=== PATIENT | female | born 1995 | race Caucasian/White ===

== ENCOUNTER 2020-06-16 15:08 | Emergency (ER) | payer SELFPAY ==
[~2020-06-16] VITALS: Ht 160 cm; Wt 72.6 kg
[2020-06-16 15:16] VITALS: BP 126/69
--- NOTE | 2020-06-16 15:25 | NUR ---
PT AMBULATED TO ER BED 12
--- NOTE | 2020-06-16 15:30 | NUR ---
Note undone in EDM - 06/16/20 at 1548 by MEDLORA / APPRO 9 WEEKS C/O N/V X 3 DAYS, INTERMITTENT EPIGASTRIC PAIN X 1 DAY, NONBLOODY DIARRHEA WITH LOOSE STOOL. DENIES COUGH, FEVER, SOB, VAG BLEEDING, SICK CONTACTS. DENIES ABD SURGERIES. AAOX4 WITH EVEN AND STEADY GAIT; LUNGS CLEAR BL; HR EVEN AND REGULAR; PATIENT STATES PAIN OF 3/10 AT THIS TIME; VSS; PATIENT POSITIONED FOR COMFORT; HOB ELEVATED; BEDRAILS UP X1; BED DOWN. ER MADE AWARE OF PT STATUS.
--- NOTE | 2020-06-16 15:30 | NUR ---
24/F APPRO 8 WEEKS C/O N/V X 3 DAYS, INTERMITTENT EPIGASTRIC PAIN X 1 DAY, NONBLOODY DIARRHEA WITH LOOSE STOOL. DENIES COUGH, FEVER, SOB, VAG BLEEDING, SICK CONTACTS. DENIES ABD SURGERIES. AAOX4 WITH EVEN AND STEADY GAIT; LUNGS CLEAR BL; HR EVEN AND REGULAR; PATIENT STATES PAIN OF 3/10 AT THIS TIME; VSS; PATIENT POSITIONED FOR COMFORT; HOB ELEVATED; BEDRAILS UP X1; BED DOWN. ER MD MADE AWARE OF PT STATUS.
--- NOTE | 2020-06-16 15:40 | NUR ---
Amber lindquist in ED - 06/16/20 at 1548 by MEDJJ MARY GRACE CARABALLO IS EVALUATING PT AT BEDSIDE.
--- NOTE | 2020-06-16 15:40 | NUR ---
MARY GRACE CARABALLO IS EVALUATING PT AT BEDSIDE.
[2020-06-16] MEDS ORDERED: NACL 0.9% 1,000 ML IV ONE (15:45)
[2020-06-16] MEDS ORDERED: diphenhydrAMINE 50 MG/ML VIAL IVP ONE (15:45)
[2020-06-16] MEDS ORDERED: METOCLOPRAMIDE 10 MG/2 ML INJ VIAL IVP ONE (15:45)
--- NOTE | 2020-06-16 16:34 | NUR ---
US IS AT BEDSIDE.
[2020-06-16 16:43] LABS: BASOPHILS # (AUTO) 0.1 K/uL (0.00-0.22); BASOPHILS % (AUTO) 0.5 % (0.0-2.0); HEMATOCRIT 39.3 % (36-48); LYMPHOCYTES # (AUTO) 1.5 K/uL (2.5-16.5); LYMPHOCYTES % (AUTO) 10.9 % (20.5-51.1); MEAN CORPUSCULAR HEMOGLOBIN 29 pg (27-31); MEAN CORPUSCULAR HGB CONC 33 g/dL (33-37); MEAN CORPUSCULAR VOLUME 87.9 fL (80-94); MONOCYTES # (AUTO) 0.5 K/uL (0.8-1.0); NEUTROPHILS # (AUTO) 11.4 K/uL (1.8-7.7); NEUTROPHILS % (AUTO) 84.6 % (42.2-75.2); PLATELET COUNT (AUTO) 281 K/uL (140-450); RED BLOOD CELL COUNT(AUTO) 4.47 MIL/uL (4.20-5.40); RED CELL DISTRIBUTION WIDTH 13.4 % (11.6-13.7); WHITE BLOOD COUNT (AUTO) 13.5 K/uL (4.8-10.8)
--- NOTE | 2020-06-16 17:07 | NUR ---
JUICE AND CRACKERS PROVIDED TO PATIENT.
[2020-06-16 17:12] LABS: POTASSIUM 3.5 mmol/L (3.5-5.1)
[2020-06-16 17:13] LABS: ANION GAP 19.2 (8-16); CARBON DIOXIDE 21.3 mmol/L (21-32)
[2020-06-16 17:14] LABS: CREATININE 0.6 mg/dL (0.6-1.3); TOTAL BILIRUBIN 0.5 mg/dL (0.0-1.0)
[2020-06-16 17:15] LABS: ALBUMIN 3.7 g/dL (3.4-5.0)
[2020-06-16 17:45] VITALS: BP 113/72
--- NOTE | 2020-06-16 17:45 | NUR ---
Patient discharged with v/s stable. Written and verbal after care instructions given and explained. Patient alert, oriented and verbalized understanding of instructions. Ambulatory with steady gait. All questions addressed prior to discharge. ID band removed. Patient advised to follow up with PMD. Rx of Diclegis given. Patient educated on indication of medication including possible reaction and side effects. Opportunity to ask questions provided and answered.
== END 2020-06-16 17:45 | disposition home or self-care (01) ==
LOC: MED 15:08
DX: O21.9 Vomiting of pregnancy, unspecified (principal); O99.611 Diseases of the digestive system complicating pregnancy, first trimester; Z34.91 Encounter for supervision of normal pregnancy, unspecified, first trimester
CPT/HCPCS: 36415; 76802; 80053; 81002; 81025; 84702; 85025; 96361; 96374; 96375; 99284; J1200; J2765; Q0092; J7030

== ENCOUNTER 2020-06-17 19:43 | Emergency (ER) | payer MEDICAID ==
[~2020-06-17] VITALS: Ht 160 cm; Wt 72.6 kg
[2020-06-17 19:45] VITALS: BP 162/118
--- NOTE | 2020-06-17 19:45 | NUR ---
24 YO F BIB SELF FOR C/C OF UNCONTROLLED N/V X3 DAYS. PT IS 9 WEEKS WITH TWINS AND WAS SEEN HERE YESTERDAY FOR THE SAME REASON AND DISCHARGED WITH MEDS THAT HAVE NOT CONTROLLED SYMPTOMS. PT IS ALSO COMPLAINING OF 10/10 RLQ PAIN THAT "COMES AND GOES." PT STATES SHE WAS HAVING ACTIVE DIARRHEA AND NOW FEELS CONSTIPATED. PT STATES SHE HAS BEEN UNABLE TO HOLD ANY FOOD DOWN. DENIES FEVER, COUGH, SOB, AND TRAVEL. PT PLACED ON DRAFTER APPRENTICE. BED LOCKED AND IN LOWEST POSITION. SIDE RAILS X1. NKA MED HX: 9 WEEKS
[2020-06-17] MEDS ORDERED: NACL 0.9% 1,000 ML IV ONE ×2 (20:00→21:20)
[2020-06-17] MEDS ORDERED: METOCLOPRAMIDE 10 MG/2 ML INJ VIAL IVP ONE (20:00)
[2020-06-17] MEDS ORDERED: diphenhydrAMINE 50 MG/ML VIAL IVP ONE (20:00)
[2020-06-17 20:27] LABS: BASOPHILS % (AUTO) 0.1 % (0.0-2.0); EOSINOPHILS % (AUTO) 0.3 % (0.0-4.0); HEMATOCRIT 44.4 % (36-48); HEMOGLOBIN 14.8 g/dL (12.0-16.0); LYMPHOCYTES # (AUTO) 0.7 K/uL (2.5-16.5); LYMPHOCYTES % (AUTO) 4.6 % (20.5-51.1); MEAN CORPUSCULAR HEMOGLOBIN 30 pg (27-31); MEAN CORPUSCULAR HGB CONC 33 g/dL (33-37); MEAN CORPUSCULAR VOLUME 88.8 fL (80-94); MONOCYTES # (AUTO) 0.1 K/uL (0.8-1.0); MONOCYTES % (AUTO) 0.9 % (1.7-9.3); NEUTROPHILS % (AUTO) 94.1 % (42.2-75.2); PLATELET COUNT (AUTO) 319 K/uL (140-450); RED CELL DISTRIBUTION WIDTH 13.5 % (11.6-13.7); WHITE BLOOD COUNT (AUTO) 14.9 K/uL (4.8-10.8)
[2020-06-17 20:44] LABS: ALBUMIN 4.3 g/dL (3.4-5.0); ANION GAP 23.1 (8-16); CARBON DIOXIDE 19.5 mmol/L (21-32); CREATININE 0.7 mg/dL (0.6-1.3); POTASSIUM 3.6 mmol/L (3.5-5.1); TOTAL BILIRUBIN 0.6 mg/dL (0.0-1.0)
--- NOTE | 2020-06-17 20:55 | NUR ---
PT RESTING IN BED. NAUSEA AND VOMITING SUBSIDED. PT STATES HER RLQ PAIN IS STILL 9/10 AND PT IS REQUESTING PAIN MEDICATIONS. MOSHE MADE AWARE.
[2020-06-17 21:05] LABS: APPEARANCE,URINE CLEAR (CLEAR); COLOR,URINE AMBER (YELLOW)
[2020-06-17 21:06] LABS: BILIRUBIN,URINE 1+ (NEGATIVE); BLOOD, URINE NEGATIVE (NEGATIVE); LEUKOCYTE ESTERASE ,URINE NEGATIVE (NEGATIVE); NITRITE, URINE NEGATIVE (NEGATIVE); UGLUCOSE NEGATIVE (NEGATIVE)
[2020-06-17] MEDS ORDERED: MORPHINE SULFATE 2 MG/ML SYR ONE (21:18)
[2020-06-17] MEDS ORDERED: MORPHINE SULFATE 4 MG/ML SYR IVP ONE (21:20)
--- NOTE | 2020-06-17 21:35 | NUR ---
US AT BEDSIDE
[2020-06-17 23:20] VITALS: BP 119/73
--- NOTE | 2020-06-17 23:20 | NUR ---
Patient discharged with v/s stable. Written and verbal after care instructions given and explained. Patient alert, oriented and verbalized understanding of instructions. Ambulatory with steady gait. All questions addressed prior to discharge. ID band removed. Patient advised to follow up with PMD. Rx of REGLAN given. Patient educated on indication of medication including possible reaction and side effects. Opportunity to ask questions provided and answered.
== END 2020-06-18 00:40 | disposition home or self-care (01) ==
LOC: MED 19:43
DX: O21.9 Vomiting of pregnancy, unspecified (principal); O21.1 Hyperemesis gravidarum with metabolic disturbance; E86.0 Dehydration; Z3A.01 Less than 8 weeks gestation of pregnancy
CPT/HCPCS: 36415; 76705; 80053; 81003; 81025; 85025; 96361; 96374; 96375; 99284; J1200; J2270; J2765; J7030; Q0092

== ENCOUNTER 2020-06-19 08:18 | Inpatient (IN) | payer MEDICAID, OTHER ==
[~2020-06-19] VITALS: Ht 160 cm; Wt 72.6 kg
[2020-06-19 08:32] VITALS: BP 129/63
[2020-06-19] MEDS: ONDANSETRON 4 MG/2 ML VIAL IVP ONE ×2 (08:36→08:55)
[2020-06-19] MEDS: NACL 0.9% 1,000 ML IV SCH ×2 (08:36→08:37)
[2020-06-19 08:56] LABS: BASOPHILS % (AUTO) 0.2 % (0.0-2.0); EOSINOPHILS % (AUTO) 0.1 % (0.0-4.0); HEMATOCRIT 39.5 % (36-48); HEMOGLOBIN 13.4 g/dL (12.0-16.0); LYMPHOCYTES # (AUTO) 1.6 K/uL (2.5-16.5); LYMPHOCYTES % (AUTO) 13.4 % (20.5-51.1); MEAN CORPUSCULAR HEMOGLOBIN 30 pg (27-31); MEAN CORPUSCULAR HGB CONC 34 g/dL (33-37); MONOCYTES # (AUTO) 0.7 K/uL (0.8-1.0); MONOCYTES % (AUTO) 5.7 % (1.7-9.3); NEUTROPHILS # (AUTO) 9.6 K/uL (1.8-7.7); NEUTROPHILS % (AUTO) 80.6 % (42.2-75.2); PLATELET COUNT (AUTO) 299 K/uL (140-450); RED BLOOD CELL COUNT(AUTO) 4.53 MIL/uL (4.20-5.40); RED CELL DISTRIBUTION WIDTH 13.1 % (11.6-13.7); WHITE BLOOD COUNT (AUTO) 11.9 K/uL (4.8-10.8)
[2020-06-19 10:41] LABS: ALBUMIN 3.7 g/dL (3.4-5.0); ANION GAP 20.6 (8-16); CARBON DIOXIDE 20.3 mmol/L (21-32); CREATININE 0.7 mg/dL (0.6-1.3); TOTAL BILIRUBIN 0.6 mg/dL (0.0-1.0)
[2020-06-19 10:50] LABS: POTASSIUM 2.9 mmol/L (3.5-5.1)
[2020-06-19] MEDS ORDERED: KCL 20 MEQ/WATER INJ PREMIX 100 ML IV ONE (11:00)
[2020-06-19] MEDS ORDERED: MAG SULF 2000 MG/WATER PREMIX 50 ML IV ONE (11:00)
[2020-06-19] MEDS ORDERED: ONDANSETRON 4 MG/2 ML VIAL IVP ONE (13:50)
[2020-06-19] MEDS ORDERED: METOCLOPRAMIDE 10 MG/2 ML INJ VIAL IVP SCH (13:55)
[2020-06-19] MEDS ORDERED: MORPHINE SULFATE 2 MG/ML SYR IVP SCH (13:55)
[2020-06-19] MEDS ORDERED: ONDANSETRON 4 MG/2 ML VIAL IVP SCH (13:55)
[2020-06-19] MEDS ORDERED: MORPHINE SULFATE 2 MG/ML SYR ONE (13:58)
[2020-06-19] MEDS ORDERED: ONDANSETRON 4 MG/2 ML VIAL ONE (13:58)
[2020-06-19] MEDS ORDERED: METOCLOPRAMIDE 10 MG/2 ML INJ VIAL ONE (13:58)
[2020-06-19 15:45] VITALS: BP 116/61
[2020-06-19] MEDS ORDERED: METOCLOPRAMIDE 10 MG/2 ML INJ VIAL IVP PRN (19:45)
[2020-06-19] MEDS ORDERED: NACL 0.9% 1,000 ML IV SCH (21:10)
[2020-06-19] MEDS: LACTATED RINGERS 1,000 ML IV SCH (22:00)
[2020-06-19] MEDS: ONDANSETRON 4 MG/2 ML VIAL IVP SCH (23:37)
[2020-06-20 01:23] VITALS: BP 127/80
[2020-06-20] MEDS: LACTATED RINGERS 1,000 ML IV SCH ×4 (02:25→14:10)
[2020-06-20] MEDS: ONDANSETRON 4 MG/2 ML VIAL IVP SCH ×3 (05:58→18:44)
[2020-06-20] MEDS ORDERED: ACETAMINOPHEN 325 MG TAB PO PRN (06:05)
[2020-06-20 08:19] VITALS: BP 122/70
[2020-06-20] MEDS ORDERED: PANTOPRAZOLE 40 MG INJ VIAL IVP SCH (09:00)
[2020-06-20] MEDS: MORPHINE SULFATE 2 MG/ML SYR IVP PRN ×2 (10:01→14:08)
[2020-06-20 18:06] VITALS: BP 115/67
== END 2020-06-20 20:15 | disposition home or self-care (01) | DRG 833 ==
LOC: MED 08:18 → MMU 14:24
PROVIDERS: ADMIT Obstetrics & Gynecology; ATTEND Obstetrics & Gynecology
DX: O21.1 Hyperemesis gravidarum with metabolic disturbance (principal); Z3A.01 Less than 8 weeks gestation of pregnancy
CPT/HCPCS: 36415; 80053; 83690; 85025; 87081; 96365; 96366; 96375; 99285; C9113; J2270; J2405; J2765; J3475; J3480; J7120

== ENCOUNTER 2020-06-21 15:33 | Inpatient (IN) | payer OTHER ==
[~2020-06-21] VITALS: Ht 160 cm; Wt 71.2 kg
[2020-06-21 15:38] VITALS: BP 129/73
--- NOTE | 2020-06-21 15:51 | NUR ---
24 Y/O FEMALE C/O HYPEREMESIS, ABD PAIN 10/10 PAIN, X4 DAYS. PT STATES SHE IS 6 WEEKS WITH TWINS AND BEGAN HAVING EPIGASTRIC PAIN WITH HYPEREMESIS 4 DAYS AGO. ABD SOFT/TENDER/NON DISTENDED. DENIES ANY VAGINAL BLEEDING. C/O HEADACHE, WEAKNESS, DIZZINESS. AAOX4. AMBULATORY WITH STEADY GAIT. DENIES ANY CP/SOB/COUGH. NKDA
[2020-06-21] MEDS ORDERED: NACL 0.9% 1,000 ML IV ONE (15:55)
[2020-06-21] MEDS ORDERED: METOCLOPRAMIDE 10 MG/2 ML INJ VIAL IVP ONE (16:00)
[2020-06-21] MEDS ORDERED: MORPHINE SULFATE 2 MG/ML SYR IVP ONE (16:05)
[2020-06-21] MEDS ORDERED: ONDANSETRON 4 MG/2 ML VIAL IVP ONE (16:05)
[2020-06-21 16:45] VITALS: BP 123/71
--- NOTE | 2020-06-21 16:45 | NUR ---
RECEIVED PATIENT FROM ER NURSE, TAYLOR, FOR CONTINUITY OF CARE. PATIENT BROUGHT IN BY WHEELCHAIR AND ABLE TO AMBULATE TOWARDS BED. V/S TAKEN AND IS WNL. PATIENT COMPLAINS OF ABDOMINAL PAIN 09/01, WILL REPORT TO DR. ROSALES. RESPIRATIONS EVEN BUT LABORED WITH RATE OF 24 ON ROOM AIR, SAO2 100%. IV SITE ON LAC 20G WITH IVF RUNNING TKO. NO SIGNS OF DISTRESS NOTED. SAFETY PRECAUTIONS INITIATED. MRSA CULTURE SWABBED. POC DISCUSSED AND PATIENT VERBALIZES UNDERSTANDING. CALL LIGHT WITHIN REACH. WILL CONTINUE TO MONITOR.
--- NOTE | 2020-06-21 16:59 | NUR ---
Patient will be admitted to [facility]. Admited to [facility]. Will go to room 122A. Belongings list completed. Report to GREG SANCHEZ.
--- NOTE | 2020-06-21 17:10 | NUR ---
LEFT MESSAGE FOR DR. ROSALES REGARDING PATIENT'S ABDOMINAL PAIN AND NAUSEA. WILL CONTINUE TO MONITOR.
--- NOTE | 2020-06-21 18:20 | NUR ---
PATIENT ASLEEP AND IN BED. NO SIGNS OF DISTRESS NOTED. PATIENT LYING PRONE, STATES THAT PAIN IS RELIEVED IN THIS POSITION. WILL CONTINUE TO MONITOR.
--- NOTE | 2020-06-21 19:27 | NUR ---
ENDORSED TO LAP CUTTER TRUER OPERATOR NURSE FOR CONTINUITY OF CARE.
--- NOTE | 2020-06-21 19:28 | NUR ---
REPORT RECEIVED FROM AM RN. PT IS LAYING SUPINE REMAINS ON SOFT WRIST RESTRAINTS DUE TO PULLING OUT TUBES. CIRCULATION CHECK DONE NO IMPAIRMENTS. PT CONFUSED ORIENTED X 1 TO SELF. PT WAS REORIENTED AND SAFETY MEASURES IN PLACE. NO RESPIRATORY DISTRESS. WILL CONTINUE WITH POC.
[2020-06-21] MEDS ORDERED: MORPHINE SULFATE 2 MG/ML SYR IVP PRN (19:50)
[2020-06-21] MEDS: DEXT 5% / LACT RING 1,000 ML IV SCH (19:55)
[2020-06-21] MEDS: METOCLOPRAMIDE 10 MG/2 ML INJ VIAL IVP PRN (22:11)
[2020-06-21] MEDS: MORPHINE SULFATE 2 MG/ML SYR IVP PRN (22:12)
--- NOTE | 2020-06-21 22:30 | NUR ---
MD CAME TO EVALUATE PT AND SUBMITTED ORDERED. PT WAS GIVEN MORPHINE FOR ABDOMINAL PAIN / AND REGLAN FOR NAUSEA IVP. PT AMBULATES TO RESTROOM WITH STEADY GAIT. COMMUNICATES NEEDS EFFECTIVELY. WILL CONTINUE TO MONITOR
[2020-06-22] VITALS: BP 109/53
--- NOTE | 2020-06-22 01:15 | NUR ---
PT RESTING IN BED. PT RECEIVED MORPHINE FOR PAIN AND REGLAN FOR NAUSEA EARLIER TODAY. REPORTED RELIEF. PRN EFFECTIVE. DENIES ANY DISCOMFORT AT THIS TIME. PT. ABLE TO AMBULATE TO RESTROOM WITH MINIMAL ASSISTANCE. VOIDED X 1
[2020-06-22] MEDS: diphenhydrAMINE 50 MG/ML VIAL IVP SCH ×4 (01:34→18:24)
[2020-06-22] MEDS: ONDANSETRON 4 MG/2 ML VIAL IVP SCH ×4 (01:35→18:24)
[2020-06-22 02:59] LABS: APPEARANCE,URINE CLEAR (CLEAR); BILIRUBIN,URINE NEGATIVE (NEGATIVE); BLOOD, URINE NEGATIVE (NEGATIVE); COLOR,URINE YELLOW (YELLOW); LEUKOCYTE ESTERASE ,URINE NEGATIVE (NEGATIVE); NITRITE, URINE NEGATIVE (NEGATIVE); UGLUCOSE NEGATIVE (NEGATIVE)
[2020-06-22 03:13] LABS: BARBITURATE, URINE NEGATIVE ng/ml (NEG <=200); BENZODIAZEPINE, URINE NEGATIVE ng/mL (NEG <=200); CANNABINOID, URINE POSITIVE ng/mL (NEG <=50); COCAINE, URINE NEGATIVE ng/mL (NEG <=300); OPIATE, URINE POSITIVE ng/mL (NEG <=2000); PHENCYCLIDINE SCREEN,URINE NEGATIVE ng/mL (NEG <=25)
--- NOTE | 2020-06-22 03:30 | NUR ---
IN BED RIGHT LATERAL SIDE RESPIRATION EVEN AND UNLABORED. IN NO DISTRESS. REMAINS ON IVF AT 150 ML/HR. ALL NEEDS ARE MET AT THIS TIME.
[2020-06-22] MEDS: DEXT 5% / LACT RING 1,000 ML IV SCH ×4 (04:43→22:35)
--- NOTE | 2020-06-22 05:25 | NUR ---
PT AWAKE AND AMBULATED TO RESTROOM. URINE SPECIMEN COLLECTED AND ROUTED TO LAB. DENIES ANY DISCOMFORT AT THIS TIME. WILL CONTINUE TO MONITOR.
--- NOTE | 2020-06-22 07:18 | NUR ---
BEDSIDE REPORT GIVEN TO AM RN FOR CONTINUITY OF CARE. PT IS STABLE
[2020-06-22 08:00] VITALS: BP 100/61
--- NOTE | 2020-06-22 08:05 | NUR ---
RECEIVED REPORT FROM PM SHIFT. PATIENT ALERT AWAKE ORIENTED X4, NOT IN ANY DISTRESS NOTED. INITIAL ASSESSMENT INITIATED. WITH IVF ON GOING LR @ 150 ML/HR INFUSING WELL. DENIES PAIN AT THIS TIME, JUST MEDICATED BY PM NURSE. CALL LIGHT WITHIN REACH. WILL CONTINUE TO MONITOR.
--- NOTE | 2020-06-22 09:21 | NUR ---
PATIENT HAS BEEN SCREENED AND CATEGORIZED HIGH NUTRITION RISK. PATIENT WILL BE SEEN WITHIN 1-2 DAYS OF ADMISSION. 06/22/20-06/23/[address]
--- NOTE | 2020-06-22 11:01 | NUR ---
SYSTEM OPERATOR NOTE: Patient's Orientation Unable To Assess Information Provided By MIGUEL ESTRELLA - MOTHER Comments SW WAS UNABLE TO MEET PATIENT AT BEDSIDE DUE TO MEDICAL CONDITION. Chief Deputy Coroner, Realtionship and Phone Number MIGUEL HUTCHINS [phone] Healthcare Power of Corrugator Operator Helper No Does Patient Have a POLST No Identifying Problems No Social Work Triggers Is A Social Work Consult Needed No Mandate Report Filed No Explanation Of Identifying Problems PATIENT IS A 24-YEAR-OLD FEMALE ADMITTED FOR HYPEREMTIS GRAVIDARUM. PATIENT HAS NO PERTINENT PMHX. Admitted From Home Pre-Admission Level Of Functioning Status Independent/Ambulatory Prior Resources/Services Used In Last 12 Months No Prior Resources Used Prior DME No Prior DME Used Living Situation Apartment Lives With Family Patient Had Caregiver No Home Support No Caregiver Issues Financial Issues No Known Financial Issue Referral To The Financial Counselor Needed No Factors/Needs No D/C Needs Identified Pt/Rep Participated In Discharge Plan Yes Patient/Family Agress With Discharge Plan Yes Discharge Plan Comments TENTATIVE DISCHARGE PLAN IS FOR PATIENT TO RETURN HOME. DC Plan Status Initiated
--- NOTE | 2020-06-22 13:09 | NUR ---
PATIENT RESTING IN BED, NO NAUSEA AND VOMITING NOTED. VERBALIZED THAT SHE FEELS BETTER, ABLE TO TOLERATE DIET. WILL CONTINUE TO MONITOR.
--- NOTE | 2020-06-22 15:05 | NUR ---
RESTING IN BED, NO NAUSEA AND VOMITING NOTED. DENIES PAIN. WILL CONTINUE TO MONITOR.
--- NOTE | 2020-06-22 15:23 | NUR ---
06/22/20 RD INITIAL ASSESSMENT COMPLETED PLEASE REFER TO NUTRITION ASSESSMENT UNDER CARE ACTIVITY FOR ESTIMATED NUTRITIONAL NEEDS. 1. CONTINUE CLEAR LIQUID DIET TOLERATED 2. RECOMMEND ENSURE CLEAR TID 3. ADVANCE TO BLAND DIET TOLERATED 4. RD PROVIDED GENERAL EDUCATION FOR NUTRITION DURING AND MORNING SICKNESS TIPS. PT ACCEPTED. 5. RD TO FOLLOW-UP 5-7 DAYS, LOW RISK RENETTA KHAN, RD
[2020-06-22 16:00] VITALS: BP 118/64
--- NOTE | 2020-06-22 18:31 | NUR ---
PATIENT TOLERATING DIET, NO NAUSEA AND VOMITING. WILL CONTINUE TO MONITOR.
[2020-06-22] MEDS: METOCLOPRAMIDE 10 MG/2 ML INJ VIAL IVP PRN (19:06)
--- NOTE | 2020-06-22 20:00 | NUR ---
RECEIVED REPORT FROM THE DAY RN REGARDING THE PT FOR CONTINUITY OF CARE. PT A/A/OX3, LAYING IN BED AND C/O NAUSEA AND VOMITING. PT WAS JUST MEDICATED WITH REGLAN BEFORE CHANGE OF SHIFT AND MADE AWARE THAT THERE IS NO AVAILABLE ANTI NAUSEA MEDICINE FOR NOW. NO C/O PAIN AT THIS TIME. IVF INFUSING ORDERED. VERBALIZED UNDERSTANDING WITH THE POC. CALL LIGHT WITHIN REACH.
[2020-06-22] MEDS: MORPHINE SULFATE 2 MG/ML SYR IVP PRN (20:38)
--- NOTE | 2020-06-22 22:15 | NUR ---
PT C/O ABDOMINAL PAIN 08/02 AND REQUESTED FOR THE PAIN MEDS. PRN MORPHINE GIVEN ORDERED. BP 140/84, HR-68. CALL LIGHT WITHIN REACH.
[2020-06-22 22:38] VITALS: BP 140/84
[2020-06-23] VITALS: BP 127/74
--- NOTE | 2020-06-23 | NUR ---
PT VITAL SIGNS STABLE, AFEBRILE, SATING 98% ON RA. NO C/O PAIN AT THIS TIME.CALL LIGHT WITHIN REACH.
[2020-06-23] MEDS: ONDANSETRON 4 MG/2 ML VIAL IVP SCH ×4 (00:01→17:24)
[2020-06-23] MEDS: diphenhydrAMINE 50 MG/ML VIAL IVP SCH ×4 (00:01→17:24)
[2020-06-23] MEDS: DEXT 5% / LACT RING 1,000 ML IV SCH ×3 (00:08→17:44)
--- NOTE | 2020-06-23 02:20 | NUR ---
PT SLEEPING AT THIS TIME. VISIBLE CHEST RISE AND FALL NOTED. WILL CONTINUE POC. CALL LIGHT WITHIN REACH.
--- NOTE | 2020-06-23 04:30 | NUR ---
PT REMAIN SLEEPING BUT EASY TO AROUSED. NO C/O PAIN AT THIS TIME. WILL CONTINUE POC AND SURVEILLANCE.
--- NOTE | 2020-06-23 06:26 | NUR ---
PT STABLE. NO ACUTE EVENTS THROUGHOUT THE NIGHT. NOT IN ANY DISTRESS. NO COMPLAIN AT THIS TIME. ALL NEEDS ATTENDED. CALL LIGHT WITHIN REACH. WILL ENDORSE THE PT TO THE ONCOMING RN FOR CONTINUITY OF CARE.
--- NOTE | 2020-06-23 07:36 | NUR ---
RECEIVED REPORT FROM THE CELL MAKER RN FOR CONTINUITY OF CARE. PT A/A/OX3, LAYING IN BED ASLEEP. PT ON RA SATING WELL. SKIN INTACT. IV INTACT AND INFUSING WELL. ALL NEEDS CURRENTLY MET. DISCUSSED POC WITH PT AND PT VERBALIZED UNDERSTANDING. WILL ROUND FREQUENTLY ON PT.
[2020-06-23 08:00] VITALS: BP 111/65
[2020-06-23] MEDS: PANTOPRAZOLE 40 MG INJ VIAL IVP SCH (08:56)
--- NOTE | 2020-06-23 09:57 | NUR ---
ADMIN MORNING MEDS TO PT. PT TOLERATED WELL. ALL NEEDS MET.
--- NOTE | 2020-06-23 12:51 | NUR ---
DC PLANN[age] YRS OLD FEMALE PATIENT WAS ADMITTED FROM HOME WITH A DX OF HYPEREMESIS GRAVIDARUM. PT . PT HAS NO MEDICAL HISTORY. ULTRASOUND SHOWED [facility] INTRAUTERINE . STARTED ON IVF, BENADRYL ZOFRAN AND REGLAN FOR NAUSEA/VOMITING. DC PLAN TO GO HOME WHEN STABLE. CM TO FOLLOW
[2020-06-23] MEDS: METOCLOPRAMIDE 10 MG/2 ML INJ VIAL IVP SCH ×2 (13:15→17:24)
--- NOTE | 2020-06-23 13:47 | NUR ---
PT ASLEEP. ALL NEEDS MET.
[2020-06-23 15:06] LABS: BASOPHILS # (AUTO) 0.1 K/uL (0.00-0.22); BASOPHILS % (AUTO) 0.5 % (0.0-2.0); EOSINOPHILS % (AUTO) 0.1 % (0.0-4.0); HEMOGLOBIN 12.7 g/dL (12.0-16.0); LYMPHOCYTES # (AUTO) 2.1 K/uL (2.5-16.5); LYMPHOCYTES % (AUTO) 17.1 % (20.5-51.1); MEAN CORPUSCULAR HEMOGLOBIN 30 pg (27-31); MEAN CORPUSCULAR HGB CONC 34 g/dL (33-37); MEAN CORPUSCULAR VOLUME 88.1 fL (80-94); MONOCYTES # (AUTO) 0.9 K/uL (0.8-1.0); MONOCYTES % (AUTO) 7.4 % (1.7-9.3); NEUTROPHILS # (AUTO) 9.1 K/uL (1.8-7.7); NEUTROPHILS % (AUTO) 74.9 % (42.2-75.2); PLATELET COUNT (AUTO) 274 K/uL (140-450); RED BLOOD CELL COUNT(AUTO) 4.32 MIL/uL (4.20-5.40); RED CELL DISTRIBUTION WIDTH 13.5 % (11.6-13.7); WHITE BLOOD COUNT (AUTO) 12.1 K/uL (4.8-10.8)
[2020-06-23 15:31] LABS: ANION GAP 12.4 (8-16); CARBON DIOXIDE 25.2 mmol/L (21-32); CREATININE 0.6 mg/dL (0.6-1.3); TOTAL BILIRUBIN 0.7 mg/dL (0.0-1.0)
[2020-06-23 15:38] LABS: POTASSIUM 2.6 mmol/L (3.5-5.1)
[2020-06-23 16:00] VITALS: BP 119/66
[2020-06-23] MEDS ORDERED: POTASSIUM CHLORIDE 40 MEQ, LIDOCAINE MPF 1% 25 MG in NACL 0.9% 250 ML IV SCH (17:00)
[2020-06-23] MEDS: PROMETHAZINE 25 MG/ML VIAL IVP SCH (17:24)
--- NOTE | 2020-06-23 18:06 | NUR ---
PT DRINKING JUICE IN BED. ALL NEEDS MET
--- NOTE | 2020-06-23 19:01 | NUR ---
WILL ENDORSE TO TIRE RECAPPER FOR CONTINUITY OF CARE. PT IN STABLE CONDITION AT THIS TIME.
--- NOTE | 2020-06-23 19:02 | NUR ---
RECEIVED REPORT FROM AM SHIFT NURSE. PATIENT LYING DOWN IN BED ON HER PHONE. NO DISTRESS NOTED. DENIES ANY PAIN. AAOX4, CALM, COOPERATIVE, SKIN COLOR APPROPRIATE TO ETHNICITY, WARM TO TOUCH. SKIN INTACT. IV SITE INTACT, PATENT, AND INFUSING IVF PER MD ORDERS. RESPIRATIONS EVEN, UNLABORED, ON ROOM AIR.REVIEWED PLAN OF CARE WITH PATIENT. PATIENT VERBALIZED UNDERSTANDING. SAFETY MEASURES IN PLACE, CALL LIGHT WITHIN REACH. WILL CONTINUE TO MONITOR.
--- NOTE | 2020-06-23 21:00 | NUR ---
PATIENT LYING DOWN IN BED SLEEPING, AROUSABLE BY VOICE. NO DISTRESS NOTED. DENIES ANY PAIN. WILL CONTINUE TO MONITOR.
--- NOTE | 2020-06-23 22:48 | NUR ---
PATIENT LYING DOWN IN BED SLEEPING, CONDITION UNCHANGED. WILL CONTINUE TO MONITOR.
--- NOTE | 2020-06-23 23:06 | NUR ---
GAVE REPORT TO DANIEL PENA FOR CONTINUITY OF CARE. PATIENT IN STABLE CONDITION.
--- NOTE | 2020-06-23 23:07 | NUR ---
GAVE REPORT TO DANIEL PENA FOR CONTINUITY OF CARE. PATIENT IN STABLE CONDITION.
--- NOTE | 2020-06-23 23:10 | NUR ---
RECEIVED PT IN STABLE CONDITION FROM DANIEL PANDA FOR CONTINUITY OF CARE. MED SURG PT. AMBULATORY. WITH IVF INFUSING WELL. NO C/O ANY DISCOMFORT NOTED. WILL CONTINUE TO MONITOR.
[2020-06-24 00:05] VITALS: BP 114/70
[2020-06-24] MEDS: ONDANSETRON 4 MG/2 ML VIAL IVP SCH ×4 (00:09→18:31)
[2020-06-24] MEDS: diphenhydrAMINE 50 MG/ML VIAL IVP SCH ×4 (00:09→18:31)
[2020-06-24] MEDS: METOCLOPRAMIDE 10 MG/2 ML INJ VIAL IVP SCH ×4 (00:09→18:31)
[2020-06-24] MEDS: PROMETHAZINE 25 MG/ML VIAL IVP SCH ×4 (00:09→18:31)
--- NOTE | 2020-06-24 01:00 | NUR ---
UP TO THE BATHROOM. VOIDED. NO C/O ANY DISCOMFORT NOTED.
[2020-06-24] MEDS: DEXT 5% / LACT RING 1,000 ML IV SCH ×3 (01:15→14:35)
--- NOTE | 2020-06-24 03:00 | NUR ---
MADE ROUNDS. ASLEEP. NO S/S OF ANY DISCOMFORT NOTED. WILL CONTINUE TO MONITOR.
--- NOTE | 2020-06-24 05:50 | NUR ---
IV SITE WITH REDNESS, LEAKING, DISCONTINUED. STARTED A NEW IV ACCESS ON THE LT HAND G#22 . CLEAR AND PATENT.
[2020-06-24 06:12] LABS: BASOPHILS % (AUTO) 0.3 % (0.0-2.0); EOSINOPHILS % (AUTO) 0.3 % (0.0-4.0); HEMATOCRIT 36.7 % (36-48); HEMOGLOBIN 12.1 g/dL (12.0-16.0); LYMPHOCYTES # (AUTO) 3.8 K/uL (2.5-16.5); LYMPHOCYTES % (AUTO) 29.4 % (20.5-51.1); MEAN CORPUSCULAR HEMOGLOBIN 29 pg (27-31); MEAN CORPUSCULAR HGB CONC 33 g/dL (33-37); MEAN CORPUSCULAR VOLUME 88.8 fL (80-94); MONOCYTES # (AUTO) 0.9 K/uL (0.8-1.0); MONOCYTES % (AUTO) 6.9 % (1.7-9.3); NEUTROPHILS # (AUTO) 8.1 K/uL (1.8-7.7); NEUTROPHILS % (AUTO) 63.1 % (42.2-75.2); PLATELET COUNT (AUTO) 252 K/uL (140-450); RED BLOOD CELL COUNT(AUTO) 4.13 MIL/uL (4.20-5.40); RED CELL DISTRIBUTION WIDTH 13.8 % (11.6-13.7); WHITE BLOOD COUNT (AUTO) 12.8 K/uL (4.8-10.8)
[2020-06-24 06:37] LABS: ANION GAP 13.3 (8-16); CARBON DIOXIDE 26.3 mmol/L (21-32); CREATININE 0.6 mg/dL (0.6-1.3)
--- NOTE | 2020-06-24 07:10 | NUR ---
RECEIVED REPORT FROM DIGITAL MARKETING EXECUTIVE RN FOR CONTINUITY OF CARE FROM YESTERDAY. PT IN STABLE CONDITION. ALL NEEDS MET. WILL CONTINUE TO ROUND FREQUENTLY ON PT.
--- NOTE | 2020-06-24 07:20 | NUR ---
K LEVEL STILL LOW 2.6, REPORTED TO JASBIR LYNN RN . SHE SAID,SHE WILL CALL .
[2020-06-24 07:26] LABS: POTASSIUM 2.6 mmol/L (3.5-5.1)
[2020-06-24 08:00] VITALS: BP 97/51
--- NOTE | 2020-06-24 09:57 | NUR ---
ADMINISTERED MORNING MEDS TO PT. PT TOLERATED WELL. ALL NEEDS MET. WILL CONTINUE TO ROUND FREQUENTLY ON PT.
[2020-06-24] MEDS: PANTOPRAZOLE 40 MG INJ VIAL IVP SCH (09:59)
[2020-06-24] MEDS ORDERED: POTASSIUM CHLORIDE 40 MEQ, LIDOCAINE MPF 1% 25 MG in NACL 0.9% 250 ML IV SCH (10:00)
--- NOTE | 2020-06-24 11:48 | NUR ---
PT RESTING IN BED. ALL NEEDS MET.
--- NOTE | 2020-06-24 13:37 | NUR ---
PT RESTING. ALL NEEDS MET,.
--- NOTE | 2020-06-24 15:14 | NUR ---
PT TALKING ON PHONE. ALL NEEDS MET.
[2020-06-24 16:00] VITALS: BP 123/70
--- NOTE | 2020-06-24 17:39 | NUR ---
PT RESTING IN BED TALKING ON THE PHONE. ALL NEEDS MET,
--- NOTE | 2020-06-24 18:59 | NUR ---
WILL ENDORSE TO EDGER HAND FOR CONTINUITY OF CARE. PT IN STABLE CONDITION.
--- NOTE | 2020-06-24 19:45 | NUR ---
DC HOME IN STABLE CONDITION WITH ALL DC PAPERS GIVEN, VERBALIZED UNDERSTANDING. IV ACCESS AND ID BAND REMOVED. WHEELED TO THE LOBBY BY HAIRSPRING I INSPECTOR BY WHEELCHAIR TO PRIVATE CAR WITH DISTRIBUTION ASSOCIATE.
== END 2020-06-24 19:45 | disposition home or self-care (01) | DRG 833 ==
LOC: MED 15:33 → MTU 16:26
PROVIDERS: ADMIT Obstetrics & Gynecology; ATTEND Obstetrics & Gynecology
DX: O21.0 Mild hyperemesis gravidarum (principal); O30.001 Twin pregnancy, unspecified number of placenta and unspecified number of amniotic sacs, first trimester; Z3A.01 Less than 8 weeks gestation of pregnancy
CPT/HCPCS: 36415; 80048; 80053; 80305; 81003; 84132; 84439; 84443; 84481; 85025; 87081; 87086; 96374; 96375; 99285; C9113; J1200; J2001; J2270; J2405; J2550; J2765; J3480; J7030